=== PATIENT | female | born 1990 | race Caucasian/White ===

== ENCOUNTER 2021-06-04 09:16 | Outpatient (REF) | payer OTHER, SELFPAY ==
[2021-06-05 03:03] LABS: CT PCR NOT DETECTED (Not Detect.)
[2021-06-05 03:04] LABS: NG PCR NOT DETECTED (Not Detect.)
[2021-06-05 09:45] LABS: BV Int Neg Control Negative (Negative); BV Int Pos Control Positive (Positive)
[2021-06-08 16:37] LABS: HPV mRNA E6/E7 rflx Not Detected (Not Detected)
== END 2021-06-04 09:17 | disposition home or self-care (01) ==
LOC: HO.LAB 09:16
PROVIDERS: Visit Provider Advanced Practice Midwife
DX: Z01.419 Encounter for gynecological examination (general) (routine) without abnormal findings (principal); Z11.3 Encounter for screening for infections with a predominantly sexual mode of transmission; Z11.51 Encounter for screening for human papillomavirus (HPV); Z20.2 Contact with and (suspected) exposure to infections with a predominantly sexual mode of transmission
CPT/HCPCS: 87480; 87491; 87510; 87591; 87624; 87660; 88142

== ENCOUNTER 2022-06-07 10:03 | Outpatient (REF) | payer OTHER, SELFPAY ==
[2022-06-07 19:19] LABS: CT PCR NOT DETECTED (Not Detect.); NG PCR NOT DETECTED (Not Detect.)
[2022-06-08 12:54] LABS: BV Int Neg Control Negative (Negative); BV Int Pos Control Positive (Positive)
== END 2022-06-07 10:04 | disposition home or self-care (01) ==
LOC: HO.LAB 10:03
PROVIDERS: Visit Provider Advanced Practice Midwife
DX: Z01.419 Encounter for gynecological examination (general) (routine) without abnormal findings (principal); Z20.2 Contact with and (suspected) exposure to infections with a predominantly sexual mode of transmission; Z11.3 Encounter for screening for infections with a predominantly sexual mode of transmission
CPT/HCPCS: 87480; 87491; 87510; 87591; 87660

== ENCOUNTER 2023-09-14 09:29 | Outpatient (REF) | payer OTHER, SELFPAY ==
[2023-09-14 14:03] LABS: CT PCR NOT DETECTED (Not Detect.); NG PCR NOT DETECTED (Not Detect.)
[2023-09-15 12:54] LABS: BV Int Neg Control Negative (Negative); BV Int Pos Control Positive (Positive)
== END 2023-09-14 09:30 | disposition home or self-care (01) ==
LOC: HO.LNP 09:29
PROVIDERS: Visit Provider Advanced Practice Midwife
DX: Z01.419 Encounter for gynecological examination (general) (routine) without abnormal findings (principal); B37.31 Acute candidiasis of vulva and vagina; Z20.2 Contact with and (suspected) exposure to infections with a predominantly sexual mode of transmission
CPT/HCPCS: 0353U; 87480; 87510; 87660; 99395

== ENCOUNTER 2023-09-14 09:29 | Outpatient (AMB) | payer OTHER, SELFPAY ==
--- NOTE | 2023-09-14 09:35 | MHC.OFFVIS ---
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 Drier And Pulverizer Tender Required: No Information Interpreted: non-clinical & clinical Assistant Community Director: Assistant Community Director Present (Aidyn) Allergies egg [EGG] Allergy (Unknown, Verified 09/14/23 09:38) UNKNOWN gluten [GLUTEN] Allergy (Unknown, Verified 09/14/23 09:38) UNKNOWN dairy Allergy (Unknown, Uncoded 09/14/23 09:38) Stomach Upset DAIRY PRODUCTS Allergy (Unknown, Uncoded 09/14/23 09:38) UNKNOWN egg whites Allergy (Unknown, Uncoded 09/14/23 09:38) Stomach Upset gluten Allergy (Unknown, Uncoded 09/14/23 09:38) Stomach Upset Is last menstrual period known: Yes Last menstrual period: 08/18/23 Post menopausal: No HPI 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 She is sexually active with just a couple of people in the last year. She uses fertility awareness for control and condoms if there is any doubt. She went to [place] couple weeks ago and caught COVID after her trip and then started feeling raw she has been working out since March in a gym with intense 45 minute workouts so she does wear like or a lot. She has no real worries about STDs but would like testing along with the exam she thinks she may have had an abnormal Pap smear many years ago elsewhere but on retesting it was fine Paps in the system are negative from 2016 and 2020. She has no other health concerns. [facility] Family History Paternal Grandmother Breast cancer Social History Alcohol intake: never Patient Tobacco Use Status: Never used Tobacco Gender identity: Female Female Reproductive History Menstrual Age of Menarche: 14 Duration of menses: 6-7 days Date of last menstrual period: 08/18/23 control method: none Total pregnancies: 2 Full term: 1 Number of Living Children: 1 Ab spontaneous: 1 Date of last pap smear: 07/30/21 (negative) Physical Exam Vital Signs: Last Vital Signs BP 110/66 09/14/23 09:36 BMI result Body Mass Index 32.2 Const General: healthy appearing, comfortable, no acute distress, well developed and alert Nutritional Appearance: average body habitus Orientation/consciousness: patient oriented x3 Limitations: no limitations HEENT Head: Yes normocephalic Neck Neck: Yes normal visual inspection Chest Chest palpation & inspection: normal inspection of the chest Breast/axilla inspection: normal inspection of the breasts and normal inspection of the axillae Breast/axilla palpation: normal palpation of the breasts and normal palpation of the axillae Resp Effort & Inspection: normal respiratory effort GI Inspection: Yes normal to inspection, No Abdominal wall edema and No distended Palpation (GI): Soft to palpation and nontender Other: Vagina pink and moist external vulva slightly darker pink consistent with inflammation yeast like appearance to discharge which is otherwise white and clear cervix multiparous pink smooth uterus midposition nontender adnexa nontender not enlarged medium tone with Kegel. General: Yes bladder normal to palpation External Female Exam: normal external appearance and normal appearance of the urethra Speculum Exam - Vagina: normal appearance of the vagina, normal palpation and normal vaginal discharge Speculum Exam - Cervix: normal appearance of the cervix, normal palpation and nontender Bimanual exam- vagina & uterus: normal bimanual exam, normal palpation, uterine size normal, bladder normal to palpation, consistency normal, normal palpation, uterine mobility normal, uterine shape normal, No Cervical tenderness present, non-tender and no cervical motion tenderness Bimanual Exam- Adnexa, other: normal adnexae, no masses, normal and No adnexal tenderness Neuro General: patient oriented x3 Assessment & Plan Assessment & Plan (1) Potential exposure to STD: Code(s): Z20.2 - Contact with and (suspected) exposure to infections with a predominantly sexual mode of transmission (2) Cervical cancer screening: Comment: pt sates she may have had abnl in past elsewhere, but repeat ok; 2017 pap neg; 06/04/21 pap -neg, neg hpv. Code(s): Z12.4 - Encounter for screening for malignant neoplasm of cervix (3) Well woman exam with routine gynecological exam: Code(s): Z01.419 - Encounter for gynecological examination (general) (routine) without abnormal findings (4) Yeast infection of the vagina: Code(s): B37.31 - Acute candidiasis of vulva and vagina Plan -----Discussed in this visit the following: healthy balanced diet, regular and consistent exercise, getting recommended health screens, doing the best she can for her particular health concerns, kegel exercises, pap smear screening and followup recommendations, mammography screening and SBE, normal changes in cycles in her life stage--- . Reviewed Pap smears schedules she does think she had the Gardasil vaccine The yeast appears very mild she might be able to avoid treatment by just not wearing underwear and night and avoiding lycra or changing quickly out of it,but I sent a prescription for miconazole cream that she can use as long as she feels she needs it. We will see her in 1 year testing was done for gonorrhea chlamydia trichomoniasis, Mikayla and Gardnerella and discussed the common findings of Mikayla and Gardnerella as well she declines blood work for STIs. Orders: Orders CT NG by PCR Today B37.31 - Acute candidiasis of vulva and vagina, Z20.2 - Contact with and (suspected) exposure to infections with a predominantly sexual mode of transmission Bacterial Vaginosis Panel Today B37.31 - Acute candidiasis of vulva and vagina, Z20.2 - Contact with and (suspected) exposure to infections with a predominantly sexual mode of transmission Medications: New miconazole nitrate 2% (Miconazole-7) 1 appful vaginal BEDTIME 7 days 45 grams 1RF miconazole nitrate 2% (Miconazole-7) 1 appful vaginal BEDTIME 7 days 45 grams 1RF Coding Level of Care Code Est Pt Prev Care 18-39y([id number]) Diagnoses Potential exposure to STD Z20.2 Cervical cancer screening Z12.4 Well woman exam with routine gynecological exam Z01.419 Yeast infection of the vagina B37.31
[2023-09-14 09:36] VITALS: BP 110/66; BMI 32.2
== END 2023-09-14 10:51 | disposition home or self-care (01) ==
PROVIDERS: Visit Provider Advanced Practice Midwife
DX: Z01.419 Encounter for gynecological examination (general) (routine) without abnormal findings (principal); B37.31 Acute candidiasis of vulva and vagina; Z20.2 Contact with and (suspected) exposure to infections with a predominantly sexual mode of transmission
CPT/HCPCS: 99395

== ENCOUNTER 2024-09-04 10:48 | Outpatient (REF) | payer OTHER, SELFPAY ==
[2024-09-04 12:22] LABS: HCG Quantitative 61 mIU/mL
== END 2024-09-04 10:49 | disposition home or self-care (01) ==
LOC: HO.LAB 10:48
PROVIDERS: Visit Provider Advanced Practice Midwife
DX: Z32.01 Encounter for pregnancy test, result positive (principal)
CPT/HCPCS: 36415; 84702

== ENCOUNTER 2024-09-06 10:51 | Outpatient (REF) | payer OTHER, SELFPAY ==
[2024-09-06 12:06] LABS: HCG Quantitative 144 mIU/mL
== END 2024-09-06 10:52 | disposition home or self-care (01) ==
LOC: HO.LAB 10:51
PROVIDERS: Visit Provider Advanced Practice Midwife
DX: Z32.01 Encounter for pregnancy test, result positive (principal)
CPT/HCPCS: 36415; 84702

== ENCOUNTER 2024-09-10 13:26 | Outpatient (REF) | payer OTHER, SELFPAY ==
[2024-09-10 14:37] LABS: HCG Quantitative 860 mIU/mL
== END 2024-09-10 13:27 | disposition home or self-care (01) ==
LOC: HO.LAB 13:26
PROVIDERS: Visit Provider Advanced Practice Midwife
DX: Z32.01 Encounter for pregnancy test, result positive (principal)
CPT/HCPCS: 36415; 84702

== ENCOUNTER 2024-09-13 10:04 | Outpatient (AMB) | payer OTHER, SELFPAY ==
--- NOTE | 2024-09-13 10:56 | A.OFFPC_ITS ---
Vital Signs 09/13/24 11:08 Height 5 ft 8 in Weight 232 lb BMI 35.3 BP 110/64 Blood Pressure Location Rt brachial Position Sitting Respiration 16 Pulse 83 Pulse Source Pulse Oximeter Temp 98.0 F Temp Source Oral Pulse Oximetry (%) 99 Oxygen Delivery Method Room Air Intake Visit Reasons: Establish Care Intake Note: establish care and 5weeks Is last menstrual period known: No Post menopausal: No Patient : Yes Allergies egg [EGG] Allergy (Unknown, Verified 09/13/24 10:57) UNKNOWN gluten [GLUTEN] Allergy (Unknown, Verified 09/13/24 10:57) UNKNOWN dairy Allergy (Unknown, Uncoded 09/14/23 09:38) Stomach Upset DAIRY PRODUCTS Allergy (Unknown, Uncoded 09/14/23 09:38) UNKNOWN egg whites Allergy (Unknown, Uncoded 09/14/23 09:38) Stomach Upset gluten Allergy (Unknown, Uncoded 09/14/23 09:38) Stomach Upset Tobacco use date assessed: 09/13/24 Dental Screening Dental Screen Date: 09/13/24 Did you have a dental visit in the last 12 months?: Yes Did you have a dental problem in the last 6 months where you did not have access to dental care?: No Was dental information given to patient?: Patient has dentist HPI Establish Care HPI Details New Patient? ?? Prior PCP:? 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 Acute issue(s):? C/o Generalized swelling ?? PMHx:?IBS, h/o anxiety. SurgHx:? Tonsils 2015. FHx:? Dad: DM, HTN. Mom: HTN, skin CA. GM Breast CA. GM: Leukemia SocHx:? Nonsmoker, EtOH: None. 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 1. Little interest or pleasure in doing things: not at all 2. Feeling down, depressed, or hopeless: not at all 3. Trouble falling or staying asleep, or sleeping too much: not at all 4. Feeling tired or having little energy: several days 5. Poor appetite or overeating: not at all 6. Feeling bad about yourself - or that you are a failure or have let yourself or your family down: not at all 7. Trouble concentrating on things, such as reading the newspaper or watching television: not at all 8. Moving or speaking so slowly that other people could have noticed. Or the opposite - being so fidgety or restless that you have been moving around a lot more than usual: not at all 9. Thoughts that you would be better off or of hurting yourself in some way: not at all Total score: 1 Depression Screening Interpretation: Negative Depression Screening Done: Yes 50093 - PHQ-9 Billing: Yes Source: Developed by Drs. Robby Arteaga, Yu Stephen, Alexandr Baum and colleagues, with an educational jayjay from [employer]. Thrive Questionnaire Date Thrive assessed: 09/13/24 I am a: Patient What is your living situation today?: I have a steady place to live Within the past 12 months, did the food you bought not last and you didn't have the money to get more?: I choose not to answer this question Within the past 12 months, did you worry whether your food would run out before you got money to buy more?: I choose not to answer this question Do you have trouble paying for medicines?: No Do you have trouble getting transportation to medical appointments?: No Do you have trouble paying your heating and electricity bill?: No Do you have trouble taking care of your child, family member or friend?: No Do you have trouble with day-to-day activities such as bathing, preparing meals, shopping, managing finances, etc.?: No Are you currently unemployed and looking for a job?: No Are you interested in more education?: Yes Please select the resources that you would like help with: Food Currently or been in a relationship where the following occur: Controlled Financially and Controlled Emotionally THRIVE Score: 2 AUDIT C Alcohol Use Questionnaire (AUDIT-C) 1. How often do you have a drink containing alcohol?: Never 3. How often do you have six or more drinks on one occasion?: Never Total Score: 0 OTILIO-7 AMB Questionnaire OTILIO-7 Date OTILIO - 7 assessed: 09/13/24 Feeling nervous, anxious, or on edge: 0 = Not at all Not being able to stop or control worryin = Not at all Worrying too much about different things: 0 = Not at all Trouble relaxin = Several days Being so restless that it is hard to sit still: 1 = Several days Becoming easily annoyed or irritable: 0 = Not at all Feeling afraid as if something awful might happen: 0 = Not at all Total OTILIO-7 score (0-4 normal; 5-9 mild; 10-14 moderate; 15-21 severe): 2 Source: Developed by Drs. Robby Arteaga, Yu Stephen, Alexandr Baum and colleagues, with an educational jayjay from [employer]. OTILIO-7 Assessment Billing OTILIO-7 Assessment Tool: OTILIO-7 Assessment 33157 Review of Systems Const Denies chills, Denies fatigue, Denies fever(s), Denies headache(s) and Denies weakness ENT Denies dizziness and Denies headache(s) Card Denies chest pain, Denies lightheadedness, Denies dyspnea and Denies other (Palpitations) Resp Denies cough, Denies dyspnea, Denies wheezing and Denies other ( shortness of breath) Musc Denies numbness and Denies tingling Neuro Denies dizziness, Denies headache(s), Denies numbness, Denies tingling, Denies paresthesias and Denies weakness Psych Denies anxiety and Denies depression Endo Denies fatigue Aller/Immun Denies wheezing Physical exam (Primary Care) Vital Signs: Last Vital Signs Temp 98.0 F 09/13/24 11:08 Pulse 83 09/13/24 11:08 Resp 16 09/13/24 11:08 BP 110/64 09/13/24 11:08 Pulse Ox 99 09/13/24 11:08 Oxygen Delivery Method Room Air 09/13/24 11:08 BMI result Body Mass Index 35.3 Tobacco/Smoking Status: Tobacco use Status Tobacco use date assessed 09/13/24 09/13/24 11:02 Patient Tobacco Use Status Never used Tobacco 09/13/24 11:02 e-Cigarette/Vaping Use Never Used 09/13/24 11:02 PHQ-9: PHQ-9 Score PHQ-9: Total score 1 09/13/24 11:07 Depression Screening Interpretation: Negative Thrive Assessment: Date of Thrive Assessment Date Thrive assessed 09/13/24 09/13/24 11:07 Currently or been in a relationship where the following occur: Controlled Financially and Controlled Emotionally Const General: no acute distress and well developed Nutritional Appearance: well nourished Orientation/consciousness: patient oriented x3 HENMT Head: Yes normocephalic and Yes atraumatic Eyes General: appearance normal, both eyes and all related structures Pupils: Equal, round and reactive pupils present EOM: EOMs intact bilaterally Resp Effort & Inspection: normal respiratory effort Auscultation: clear to auscultation bilaterally Cardio Rate: regular rate Rhythm: regular rhythm Heart sounds: S1 normal heart sound present, S2 normal heart sound present, no gallops, no murmurs and no rubs Neuro General: patient oriented x3 and gait normal Cranial nerves: Yes Equal, round and reactive pupils present Psych Affect: normal affect Coding Level of Care Code New Pt Level 4 (13882) Diagnoses Swelling R60.9 IBS (irritable bowel syndrome) K58.9 Anxiety F41.9 Positive urine test Z32.01 Hypermobility of joint M24.9 Laboratory exam ordered as part of routine general medical examination Z00.00 Additional Codes OTILIO-7 Assessment Billing - OTILIO-7 Assessment Tool: OTILIO-7 Assessment 46989 ([id number]) PHQ-9 - 62546 - PHQ-9 Billing: Yes ([id number]) Assessment & Plan Assessment & Plan (1) Swelling: Code(s): R60.9 - Edema, unspecified Category: Medical Plan: Patient?has?complaints?of?recurrent?swelling?in?subcutaneous?tissues Denies?allergic?symptoms?or?any?positive?allergic?testing Will?check?inflammatory?markers?and and?autoimmune?markers (2) IBS (irritable bowel syndrome): Code(s): K58.9 - Irritable bowel syndrome, unspecified Category: Medical Plan: Patient?has?diagnosis?of?IBS.??She?also?has?concerns?regarding?celiac Will?check?tTG Referred?to?Gastroenterology (3) Anxiety: Code(s): F41.9 - Anxiety disorder, unspecified Category: Medical Plan: Patient?states?history?of?anxiety. Denies?any?current?symptoms?though?she?does?have?significant health?related?c oncerns?which?may?be?a?manifestation?of?anxiety Will?follow (4) Positive urine test: Comment: AT HOME-seeking QHCG Code(s): Z32.01 - Encounter for test, result positive Category: Medical Plan: Check?hCG?quant?which?has?been?rising?appropriately (5) Hypermobility of joint: Code(s): M24.9 - Joint derangement, unspecified Category: Medical Plan: Hypermobility?of?joints. Patient?would?like?referral?to?Genetics?as?she?is?co ncerned?about?connective?tissue?diseases?including?Amandeep-Danlos? (6) Laboratory exam ordered as part of routine general medical examination: Code(s): Z00.00 - Encounter for general adult medical examination without abnormal findings Category: Medical Plan: Check?labs Orders: Orders Complete Blood Count Auto Diff Today Z00.00 - Encounter for general adult medical examination without abnormal findings TSH reflex Free T4 Today Z00.00 - Encounter for general adult medical examination without abnormal findings CRP High Sensitivity Today M24.9 - Joint derangement, unspecified [place] Reflex Titer and Pattern Today R60.9 - Edema, unspecified Rheumatoid Factor Today R60.9 - Edema, unspecified Comprehensive [place]. Panel Fast Today Z00.00 - Encounter for general adult medical examination without abnormal findings Lipid Panel Today Z00.00 - Encounter for general adult medical examination without abnormal findings Microalbumin, Random (w Creat) Today I10 - Essential (primary) hypertension UA and rflx microscopic Today Z00.00 - Encounter for general adult medical examination without abnormal findings HCG Quantitative Today Z32.01 - Encounter for test, result positive Erythrocyte Sedimentation Rate Today M24.9 - Joint derangement, unspecified Cyclic Citrullinated Peptide Today R60.9 - Edema, unspecified Celiac Diagnostic Gliadin TTG Today R10.9 - Unspecified abdominal pain Hemoglobin A1c Today R73.01 - Impaired fasting glucose, Z00.00 - Encounter for general adult medical examination without abnormal findings Referrals Genetics Referral M24.9 - Joint derangement, unspecified Gastroenterology Referral K58.9 - Irritable bowel syndrome, unspecified
[2024-09-13 11:08] VITALS: BP 110/64; PULSE 83; RESP 16; TEMP 36.7; O2SAT 99; BMI 35.3
== END 2024-09-13 11:51 | disposition home or self-care (01) ==
LOC: HO.HMCFM 10:04
PROVIDERS: Visit Provider Family Medicine
DX: R60.9 Edema, unspecified (principal); K58.9 Irritable bowel syndrome, unspecified; F41.9 Anxiety disorder, unspecified; Z32.01 Encounter for pregnancy test, result positive; M24.9 Joint derangement, unspecified; Z00.00 Encounter for general adult medical examination without abnormal findings

== ENCOUNTER → 2024-09-13 10:04 | Outpatient (BNVA) | payer OTHER, SELFPAY | PROVIDERS: Visit Provider Family Medicine | DX: Z00.00 Encounter for general adult medical examination without abnormal findings (principal); R60.9 Edema, unspecified; K58.9 Irritable bowel syndrome, unspecified; F41.9 Anxiety disorder, unspecified; M24.9 Joint derangement, unspecified | CPT/HCPCS: 96127; 99202 ==

== ENCOUNTER 2024-09-17 10:20 | Outpatient (AMB) | payer OTHER, SELFPAY ==
--- NOTE | 2024-09-17 10:17 | A.OFFVIS_ITS ---
Intake Visit Reasons: TV Consult Allergies egg [EGG] Allergy (Unknown, Verified 09/13/24 10:57) UNKNOWN gluten [GLUTEN] Allergy (Unknown, Verified 09/13/24 10:57) UNKNOWN dairy Allergy (Unknown, Uncoded 09/14/23 09:38) Stomach Upset DAIRY PRODUCTS Allergy (Unknown, Uncoded 09/14/23 09:38) UNKNOWN egg whites Allergy (Unknown, Uncoded 09/14/23 09:38) Stomach Upset gluten Allergy (Unknown, Uncoded 09/14/23 09:38) Stomach Upset HPI HPI TV Consult: Details: Tele visit to discuss patient's early . She had called the nurses with a reported LMP of 08/09/2024 requesting early hCGs and she had early quants starting at 3.4 weeks post LMP which came back as 6 1 and she has had repeated quants which have been rising since then. She has been offered an ultrasound for dating with the proviso that there is a tele visit to review all of this 1st. Tells me she is feeling fine though she is recovering now from a really bad cold and then she caught a GI bug that her daughter had caught it is school so she is recovering from both and trying to rehydrate she is now about 5 weeks 4 days gestation. She is aware that we do not have a birthing center anymore. 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 She is deciding between [facility] and [facility] and she has an appointment to discuss in by full with [facility] on 09/27 24 she has not heard the date of the dating ultrasound and I advised her to call by Tuesday if she is hoping to get it done this Tuesday it was ordered on 09/11 for 2w so that she would be at least 6 weeks gestation. I reviewed with her why it is not helpful to do an ultrasound before that point. She has vitamins. this was not a planned but she has been with her partner for a long time now and they are happy and not particularly surprised. I reviewed with her that after the ultrasound is done she and I will have a tele visit just to review the findings reviewed importance of getting in to care where she is going to be seeking care because of the time sensitive nature of the first-trimester screening test both ultrasound and labs around 11-12w that needs to be done and she would done with whom she is going to be getting care. 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 Current occupational exposures/hazards: No Gender identity: Female Cognitive needs: No Hearing needs: No Vision needs: No Female Reproductive History Menstrual Age of Menarche: 14 Telehealth Telehealth Telehealth Platform: Telephone Location of provider rendering services: practice address Location of patient: address on file Patient Identification confirmed using: Name, : Yes Telehealth method: voice only Patient verbally consented to treatment: Yes Patient verbally consented to billing insurance company: Yes Patient informed of any privacy concerns related to visit: Yes Minutes spent on Phone/Video with Pt.: 25 Results Reviewed Results Reviewed: RUN: 09/17/24 1018 PAGE 1 [facility] [address] [place] [address] Supervisor: Rick Sims M.D. Specimen Inquiry Name: May Prajapati Age/Sex: 34/F : 1990 Unit#: [id number] Attend Dr: Milagros Amaya CNM Re09/10/24 Status: DEP REF Location: .LAB Disch: SPEC : [id number] VIDA: 09/10/24 STATUS: COMP REQ : [id number] RECD: 09/10/[address]: Milagros Amaya CNM COMP: 09/10/24 ENTERED: 09/10/24-[address] [facility] [address]: ORDERED: HCG Quant Test Result Flag Reference HCG Quant 860 mIU/mL Weeks post LMP Approximate hCG (Last Menstrual Period) Range (mIU/ml) 3 - 4 weeks 9 - 130 4 - 5 weeks 75 - 2,600 5 - 6 weeks 850 - 20,800 6 - 7 weeks 4000 - 100,200 7 - 12 weeks 11,500 - 289,000 12 - 16 weeks 18,300 - 137,000 16 - 29 weeks (2nd trimester) 1,400 - 53,000 29 - 41 weeks (3rd trimester) 940 - 60,000 The Calderon B-hCG assay is used for the early detection of ; it cannot be used to diagnose any condition unrelated to . If a B-hCG level is not supported by the clinical evidence, results should be confirmed by an alternative method (qualitative urine hCG, for example). END OF REPORT Assessment & Plan Assessment & Plan (1) Positive urine test: Comment: AT HOME-seeking [facility] [place] Code(s): Z32.01 - Encounter for test, result positive Category: Medical (2) Early stage of : Comment: See notes telephone calls request for quants and 09/17/24 tele visit dating ultrasound was pending. 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 She had called the nurses with a reported LMP of 08/09/2024 requesting early hCGs and she had early quants starting at 3.4 weeks post LMP which came back as 6 1 and she has had repeated quants which have been rising since then. She has been offered an ultrasound for dating with the proviso that there is a tele visit to review all of this 1st. Tells me she is feeling fine though she is recovering now from a really bad cold and then she caught a GI bug that her daughter had caught it is school so she is recovering from both and trying to rehydrate she is now about 5 weeks 4 days gestation. She is aware that we do not have a birthing center anymore. 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 She is deciding between [facility] and [facility] and she has an appointment to discuss in by full with [facility] on 09/27 24 she has not heard the date of the dating ultrasound and I advised her to call by Tuesday if she is hoping to get it done this Tuesday it was ordered on 09/11 for 2w so that she would be at least 6 weeks gestation. I reviewed with her why it is not helpful to do an ultrasound before that point. She has vitamins. this was not a planned but she has been with her partner for a long time now and they are happy and not particularly surprised. I reviewed with her that after the ultrasound is done she and I will have a tele visit just to review the findings reviewed importance of getting in to care where she is going to be seeking care because of the time sensitive nature of the first-trimester screening test both ultrasound and labs around 11-12w that needs to be done and she would done with whom she is going to be getting care. In addition she met with her new primary care provider on Tuesday and he has ordered a lot lab work to check for various inflammatory conditions which she has had questions about she said she had COVID last year and she gained about 30 lb after it while continuing to do the same amount of exercise 6 days a week and not altering anything. Coding Level of Care Code Tele Est Pt Level 3 (27957) Diagnoses Positive urine test Z32.01 Early stage of Z34.90 MTHFR gene mutation Z15.89 Time Spent (min) 35 Comment 1 cr/25 speaking w pt,9 charting.
== END 2024-09-17 11:05 | disposition home or self-care (01) ==
LOC: HO.HWSM 10:20
PROVIDERS: Visit Provider Advanced Practice Midwife
DX: Z32.01 Encounter for pregnancy test, result positive (principal); Z34.90 Encounter for supervision of normal pregnancy, unspecified, unspecified trimester; Z15.89 Genetic susceptibility to other disease
CPT/HCPCS: 99213

== ENCOUNTER 2024-09-25 12:42 | Outpatient (REF) | payer OTHER, SELFPAY | END 2024-09-25 12:43 | disposition home or self-care (01) | LOC: HO.US 12:42 | PROVIDERS: PCP Family Medicine; Visit Provider Advanced Practice Midwife | DX: Z32.01 Encounter for pregnancy test, result positive (principal) | CPT/HCPCS: 76801 ==